=== PATIENT | female | born 1990 | race American Indian/Alaskan Native ===

== ENCOUNTER 2018-10-13 02:31 | Inpatient (IN) | payer MEDICAID ==
[2018-10-13] MEDS ORDERED: AMPICILLIN/NS 2 GM/100 ML 2 GM/100 ML BAG IV ONE (03:03)
[2018-10-13] MEDS ORDERED: MINERAL OIL PO PRN ×2 (03:03→08:46)
[2018-10-13] MEDS ORDERED: BRETHINE IVP PRN ×2 (03:03→08:46)
[2018-10-13] MEDS ORDERED: XYLOCAINE 2% INFILTRATI ONE ×2 (03:03→09:00)
[2018-10-13] MEDS ORDERED: ZOFRAN IV PRN (03:03)
[2018-10-13] MEDS ORDERED: BRETHINE SUB-Q PRN ×2 (03:03→08:46)
[2018-10-13 03:26] LABS: Hematocrit 32.1 % (30.3-42.9); Hemoglobin 10.7 gm/dl (10.1-14.3); Mean Corpuscular HGB Conc 33 % (30-34); Mean Corpuscular Volume 76 fl (79-97); Platelet Count 168 K/mm3 (140-440); Red Blood Count 4.24 M/mm3 (3.65-5.03); Red Cell Distribution Width 18.2 % (13.2-15.2)
[2018-10-13] MEDS ORDERED: PITOCin/NS 20 UNIT/1000ML DRIP 20 UNITS/1,000 ML BAG IV SCH ×3 (04:00→16:00)
[2018-10-13] MEDS ORDERED: PITOCin/NS 30 UNIT/500ML 30 UNITS/500 ML BAG IV SCH ×3 (04:00→09:00)
[2018-10-13] MEDS ORDERED: LACTATED RINGERS 1,000 ML IV SCH ×2 (04:00→09:00)
[2018-10-13] MEDS: SUBLIMAZE IV PRN ×2 (05:50→08:28)
[2018-10-13] MEDS ORDERED: PHENERGAN PO PRN (08:46)
[2018-10-13] MEDS ORDERED: STADOL IV PRN (08:46)
[2018-10-13] MEDS ORDERED: NARCAN 0.4 MG/1 ML IV PRN ×2 (08:46→15:53)
--- NOTE | 2018-10-13 09:14 | History and Physical Report ---
History of Present Illness Date of examination: 10/13/18 Date of admission: This is a 28 yo at 41 weeks here for srom last evening. She was ntoed to be 4cm. She is a patient of [facility]. GBS neg. Unremarkable care course Chief complaint: leaking History of present illness: This is a 28 yo at 41 weeks here for srom. Past History Past Medical History: no pertinent history Past Surgical History: no surgical history Family/Genetic History: heart disease Social history: no significant social history. denies: smoking, alcohol abuse, prescription drug abuse - Obstetrical History Expected Date of Delivery: 10/06/18 Actual Gestation: 41 Week(s) 0 Day(s) : 2 Para: 0 Hx # Term Pregnancies: 0 Number of Pregnancies: 0 Spontaneous Abortions: 1 Induced : 0 Number of Living Children: 0 Medications and Allergies Allergies Allergy/AdvReac Type Severity Reaction Status Date / Time No Known Allergies Allergy Unverified 10/13/18 03:02 Active Meds: Active Medications Butorphanol Tartrate (Stadol) 2 mg IV Q2H PRN PRN Reason: Pain , Severe (7-10) Ephedrine Sulfate (Ephedrine Sulfate) 10 mg IV Q2M PRN PRN Reason: Hypotension Fentanyl (Sublimaze) 100 mcg IV Q2H PRN PRN Reason: Labor Pain Last Admin: 10/13/18 05:50 Dose: 100 mcg Documented by: Oxytocin/Sodium Chloride (Pitocin/Ns 20 Unit/1000ml Drip) 20 units in 1,000 mls @ 125 mls/hr IV DIRECT DAYANNA Oxytocin/Sodium Chloride (Pitocin/Ns 30 Unit/500ml) 30 units in 500 mls @ 1 mls/hr IV TITR DAYANNA; Protocol Lactated Ringer's (Lactated Ringers) 1,000 mls @ 125 mls/hr IV DIRECT DAYANNA Last Admin: 10/13/18 04:20 Dose: 125 mls/hr Documented by: Oxytocin/Sodium Chloride (Pitocin/Ns 20 Unit/1000ml Drip) 20 units in 1,000 mls @ 125 mls/hr IV DIRECT DAYANNA Oxytocin/Sodium Chloride (Pitocin/Ns 30 Unit/500ml) 30 units in 500 mls @ 1 mls/hr IV TITR DAYANNA; Protocol Oxytocin/Sodium Chloride (Pitocin/Ns 30 Unit/500ml) 30 units in 500 mls @ 0 mls/hr IV TITR DAYANNA; Protocol Lactated Ringer's (Lactated Ringers) 1,000 mls @ 125 mls/hr IV DIRECT DAYANNA Mineral Oil (Mineral Oil) 30 ml PO QHS PRN PRN Reason: Constipation Naloxone HCl (Narcan 0.4 Mg/1 Ml) 0.1 mg IV Q2MIN PRN PRN Reason: Res Rate </= 8 or 02 SAT < 92% Ondansetron HCl (Zofran) 4 mg IV Q8H PRN PRN Reason: Nausea And Vomiting Last Admin: 10/13/18 04:58 Dose: 4 mg Documented by: Promethazine HCl (Phenergan) 25 mg PO Q6H PRN PRN Reason: Nausea And Vomiting Terbutaline Sulfate (Brethine) 0.25 mg SUB-Q ONCE PRN PRN Reason: Hyperstimulation/Hypertonicity Terbutaline Sulfate (Brethine) 0.25 mg IVP ONCE PRN PRN Reason: Hyperstimulation/Hypertonicity Terbutaline Sulfate (Brethine) 0.25 mg SUB-Q ONCE PRN PRN Reason: Hyperstimulation/Hypertonicity Terbutaline Sulfate (Brethine) 0.25 mg IVP ONCE PRN PRN Reason: Hyperstimulation/Hypertonicity Review of Systems All systems: negative Genitourinary: leakage of fluid - Vital Signs Vital signs: Vital Signs Temp Resp 97.7 F 18 10/13/18 02:36 10/13/18 02:36 Temp Pulse Resp BP Pulse Ox 97.5 F L 77 24 121/73 97 10/13/18 07:31 10/13/18 09:07 10/13/18 07:31 10/13/18 07:33 10/13/18 09:07 - Physical Exam Breasts: Positive: normal Cardiovascular: Regular rate, Normal S1 Lungs: Positive: Clear to auscultation, Normal air movement Abdomen: Positive: normal appearance, soft, normal bowel sounds. Negative: distention, tenderness, guarding Genitourinary (Female): Positive: normal external genitalia, normal perenium Vulva: both: normal Vagina: Positive: normal moisture Uterus: Positive: normal size Anus/Rectum: Positive: normal perianal skin Extremities: Positive: normal Deep Tendon Reflex Grade: Normal +2 - Obstetrical FHR: category 1 Cervical Dilatation: 5 Cervical Effacement Percentage: 80 station: -2 Uterine Contraction Pattern: Regular Uterine Tone Measurement Phase: Contraction Uterine Contraction Intensity: Moderate Results Result Diagrams: 10/13/18 03:00 Abnormal lab results 10/13/18 Range/Units 03:00 MCV 76 L (79-97) fl MCH 25 L (28-32) pg RDW 18.2 H (13.2-15.2) % All other labs normal. Assessment and Plan A/P IUP 41 weeks GBS neg ifv, labs offer epidural pitocin expect vaginal delivery
[2018-10-13] MEDS ORDERED: NARCAN 2 MG/2 ML IV PRN (09:15)
--- NOTE | 2018-10-13 09:15 | Anesthesia Consultation ---
Anesthesia Consult and Med Hx Date of service: 10/13/18 - Airway Anesthetic Teeth Evaluation: Good ROM Head & Neck: Adequate Mental/Hyoid Distance: Adequate Mallampati Class: Class II Intubation Access Assessment: Probably Good - Pulmonary Exam CTA: Yes - Cardiac Exam Cardiac Exam: RRR - Pre-Operative Health Status ASA Pre-Surgery Classification: ASA2 Proposed Anesthetic Plan: Epidural - Pulmonary Hx Asthma: No COPD: No Hx Pneumonia: No - Cardiovascular System Hx Hypertension: No - Central Nervous System Hx Seizures: No Hx Psychiatric Problems: No - Endocrine Hx Renal Disease: No Hx End Stage Renal Disease: No Hx Hypothyroidism: No Hx Hyperthyroidism: No - Hematic Hx Anemia: No Hx Sickle Cell Disease: No - Other Systems Hx Alcohol Use: No
[2018-10-13] MEDS ORDERED: fentaNYL-BUPIV 2 MCG/ML-0.125% 200 MCG/100 ML BAG EPIDURAL SCH (10:00)
[2018-10-13] MEDS ORDERED: NACL 0.9% IR ONE (14:51)
[2018-10-13] MEDS ORDERED: WATER FOR IRRIG STERILE IR ONE (14:51)
[2018-10-13] MEDS ORDERED: HEMABATE IM ONE (15:05)
[2018-10-13] MEDS ORDERED: ANCEF ONE (15:09)
[2018-10-13] MEDS ORDERED: PHENERGAN PR PRN (15:53)
[2018-10-13] MEDS ORDERED: NORCO 5/325 PO PRN (15:53)
[2018-10-13] MEDS ORDERED: LANSINOH TP PRN (15:53)
[2018-10-13] MEDS ORDERED: TUCKS PAD TP PRN (15:53)
[2018-10-13] MEDS ORDERED: TORADOL IV PRN ×2 (15:53)
[2018-10-13] MEDS ORDERED: TYLENOL PO PRN (15:53)
[2018-10-13] MEDS ORDERED: MORPHINE IV PRN ×2 (15:53)
[2018-10-13] MEDS ORDERED: D5LR 1,000 ML IV SCH (16:00)
[2018-10-13] MEDS ORDERED: SODIUM CHLORIDE FLUSH SYRINGE 10 ML IV NR (16:00)
--- NOTE | 2018-10-13 16:00 | Event Note ---
Date: 10/13/18 Upon evaluation, patient strip showed decels to the 50s. Discused with patient r/b//a of csec which include bleeding, ionfection, damage to pelvic and non pelvic organs risk of blood clots pain and repeat surgeries, including hysterectomy and . Patient agrees and will proceed to emergency
--- NOTE | 2018-10-13 16:01 | Procedure Note ---
OB Delivery Note - Delivery Date of Delivery: 10/13/18 Surgeon: JAVON LUND Estimated blood loss: 500cc - Section Preop diagnosis: nonreassuring FHR tracing Postop diagnosis: same section procedure: section Disposition: PACU Complications: none Narrative: see op note - Infant A at 1 minute: 9 at 5 minutes: 9 Gender: Female (7 pounds 13oz)
--- NOTE | 2018-10-13 16:02 | Operative Report ---
Operative Report Operative Report: PREOPERATIVE DIAGNOSES: 1. Intrauterine at 41 weeks 2. NRFHT 3. Meconium POSTOPERATIVE DIAGNOSES: 1. -5 LISSETT PROCEDURE PERFORMED: Primary low-transverse section. SURGEON: Dr. Rosa Dobbs MD ANESTHESIA: Epidural. ESTIMATED BLOOD LOSS: 500 mL. COMPLICATIONS: None. FINDINGS: Female in cephalic presentation, OP position, weight 7 pounds 13 ounces. Apgars were 9 at 1 minute and 9 at 5 minutes. Normal uterus, tubes, and ovaries were noted. INDICATIONS: The patient is a 28-year-old 2, para 0 female, who presented to labor and delivery for srom and active labor. She was admitted and progressed to 9 cm and had a bradycardia to 50s so emergency csec. The procedure was described to the patient in detail including possible risks of bleeding, infection, injury to surrounding organs, and possible need for further surgery. Informed consent was obtained prior to proceeding with the procedure. PROCEDURE NOTE: The patient was taken to the operating room where epidural anesthesia was found to be adequate. The patient was prepped and draped in the usual sterile fashion in the dorsal supine position with a left-covarrubias tilt. A Pfannenstiel skin incision was made with the scalpel and carried through to the underlying layer of fascia using the Bovie. The fascia was incised in the midline and extended laterally using Ashby scissors. Li clamps were used to elevate the superior aspect of the fascial incision, which was elevated, and the underlying rectus muscles were dissected off bluntly and using Ashby scissors. Attention was then turned to the inferior aspect of the fascial incision, which in similar fashion was grasped with Li clamps, elevated, and the underlying rectus muscles were dissected off bluntly and using Ashby scissors. The rectus muscles were dissected in the midline. The peritoneum was bluntly dissected, entered, and extended superiorly and inferiorly with good visualization of the bladder. The bladder blade was inserted. The vesicouterine peritoneum was identified with pickups and entered sharply using Metzenbaum scissors. This incision was extended laterally and the bladder flap was created digitally. The bladder blade was reinserted. The lower uterine segment was incised in a transverse fashion using the scalpel and ex tended using manual traction. Thick meconium fluid was noted. The infant was subsequently delivered atraumatically. The nose and mouth were bulb suctioned. The cord was clamped and cut. The was subsequently handed to the awaiting nursery nurse. cord gases obtained and placenta sent for analysis. The uterus was exteriorized and cleared of all clots and debris. The uterine incision was repaired in 2 layers using 0 chromic suture. Hemostasis was visualized. The uterus was returned to the abdomen. The pelvis was copiously irrigated. The uterine incision was reexamined and was noted to be hemostatic. The rectus muscles were reapproximated in the midline using 3-0 Vicryl. The fascia was closed with 0 PDS, the subcutaneous layer was closed with 3-0 plain gut, and the skin was closed withKeith needle. Sponge, lap, and instrument counts were correct x2. The patient was stable at the completion of the procedure and was subsequently transferred to the recovery room in stable condition.
[2018-10-13] MEDS ORDERED: DECADRON ONE (16:09)
[2018-10-13] MEDS ORDERED: MARCAINE-EPI 0.25%-1:200,000 INFILTRATI ONE ×2 (16:10→16:13)
--- NOTE | 2018-10-13 16:52 | Post Anesthesia Evaluation ---
- Post Anesthesia Evaluation Patient Participated: Yes Airway Patent: Yes Stable Respiratory Function: Yes Nausea/Vomiting: No Temp > 96.8F: Yes Pain Manageable: Yes Adequeate Hydration: Yes Anesthesia Complications: No Block Receding Appropriately: Yes
[2018-10-13] MEDS: PERCOCET 5/325 PO PRN (21:49)
[2018-10-14] MEDS: PERCOCET 5/325 PO PRN ×2 (02:50→08:45)
[2018-10-14 05:50] LABS: Hematocrit 23.3 % (30.3-42.9); Hemoglobin 7.7 gm/dl (10.1-14.3)
[2018-10-14] MEDS: IBUPROFEN PO PRN ×3 (06:29→18:35)
--- NOTE | 2018-10-14 09:32 | Progress Note ---
Assessment and Plan A/P PPD1 s/p emergency csec to [facility] routine postop care Subjective - Subjective Date of service: 10/14/18 Principal diagnosis: s/p emergency Interval history: This is a 28 yo at 41 weeks here for srom. Patient reports: appetite normal, voiding normally, pain well controlled, flatus, ambulating normally : in NICU Objective - Vital Signs Latest vital signs: Vital Signs Temp Pulse Resp BP BP Pulse Ox 10/14/18 07:29 18 10/14/18 06:29 18 10/14/18 04:00 98 F 68 16 104/75 10/14/18 03:50 18 10/14/18 02:50 18 10/14/18 00:00 98.7 F 66 18 118/68 10/13/18 22:49 18 10/13/18 21:49 18 10/13/18 18:26 98.4 F 83 18 120/57 97 10/13/18 17:15 71 16 130/65 100 10/13/18 17:00 96 H 18 133/67 100 10/13/18 16:45 78 20 146/57 100 10/13/18 16:30 93 H 21 127/63 100 10/13/18 16:15 104 H 16 114/71 100 10/13/18 16:05 96 H 24 109/62 100 10/13/18 16:00 107 H 20 92/62 100 10/13/18 15:55 97.9 F 90 21 105/48 100 10/13/18 15:12 99 10/13/18 14:36 89 99 10/13/18 14:31 80 98 10/13/18 14:28 91 H 110/62 10/13/18 14:26 88 98 10/13/18 14:21 66 99 10/13/18 14:16 88 98 10/13/18 14:14 81 119/59 10/13/18 14:11 85 99 10/13/18 14:06 78 98 10/13/18 14:01 71 99 10/13/18 14:00 67 116/62 10/13/18 13:56 72 98 10/13/18 13:51 71 98 10/13/18 13:46 69 99 10/13/18 13:44 67 110/59 10/13/18 13:41 67 98 10/13/18 13:36 72 99 10/13/18 13:31 77 99 10/13/18 13:29 93 H 139/74 10/13/18 13:26 82 100 10/13/18 13:21 80 100 10/13/18 13:16 94 H 100 10/13/18 13:15 83 L 10/13/18 13:11 79 88 10/13/18 13:06 81 100 10/13/18 12:59 94 H 101/57 99 10/13/18 12:54 89 100 10/13/18 12:51 97.9 F 18 10/13/18 12:49 997.9 F H 89 18 99 10/13/18 12:44 93 H 98 10/13/18 12:43 93 H 105/57 10/13/18 12:39 95 H 98 10/13/18 12:34 99 H 97 10/13/18 12:31 78 108/56 10/13/18 12:29 106 H 98 10/13/18 12:24 87 99 10/13/18 12:19 83 98 10/13/18 12:14 96 H 115/59 99 10/13/18 12:09 95 H 97 10/13/18 12:04 93 H 98 10/13/18 11:59 87 97 10/13/18 11:58 108 H 107/63 10/13/18 11:50 87 98 10/13/18 11:45 103 H 85 10/13/18 11:43 93 H 101/59 10/13/18 11:40 87 97 10/13/18 11:35 83 98 10/13/18 11:30 82 97 10/13/18 11:28 76 110/58 10/13/18 11:25 83 97 10/13/18 11:20 85 97 10/13/18 11:15 80 96 10/13/18 11:13 82 108/59 10/13/18 11:10 80 97 10/13/18 11:05 75 98 10/13/18 11:00 80 110/63 97 10/13/18 10:55 90 98 10/13/18 10:50 77 96 10/13/18 10:45 80 97 10/13/18 10:44 75 109/52 10/13/18 10:40 83 97 10/13/18 10:35 83 99 10/13/18 10:30 73 121/68 98 10/13/18 10:25 84 99 10/13/18 10:20 65 97 10/13/18 10:15 60 98 10/13/18 10:14 75 122/79 10/13/18 10:10 80 98 10/13/18 10:05 83 98 10/13/18 10:00 77 99 10/13/18 09:57 90 134/96 10/13/18 09:55 76 98 10/13/18 09:52 100 H 122/69 10/13/18 09:50 99 H 95 10/13/18 09:47 87 122/69 10/13/18 09:45 78 96 10/13/18 09:42 81 115/61 10/13/18 09:40 72 97 10/13/18 09:39 91 H 129/72 10/13/18 09:38 102 H 67 L 10/13/18 09:37 76 124/58 10/13/18 09:35 87 97 10/13/18 09:31 90 134/63 10/13/18 09:30 69 97 Intake and Output 10/13/18 10/14/18 10/14/18 23:59 07:59 15:59 Intake Total 300 840 Output Total 1600 1600 Balance -1300 -760 Intake: IV 300 Oral 540 Intake, Free Water 300 Output: Urine 1600 1600 Uretheral (Hall) 1400 Void 1600 Other: Total, Intake Amount 300 Total, Output Amount 800 # Voids Void 1 - Exam Breasts: Present: normal Cardiovascular: Present: Regular rate, Normal S1 Lungs: Present: Clear to auscultation, Normal air movement Abdomen: Present: normal appearance, soft, normal bowel sounds. Absent: distention, tenderness, guarding Uterus: Present: normal, firm, fundal height below umbilicus Extremities: Present: normal Deep Tendon Reflex Grade: Normal +2 Incision: Present: normal, dry, dressed - Labs Labs: Abnormal lab results 10/13/18 10/14/18 Range/Units 15:07 05:20 Hgb 7.7 L D (10.1-14.3) gm/dl Hct 23.3 L D (30.3-42.9) % POC ABG pH 7.253 L (7.35-7.45)
[2018-10-14] MEDS ORDERED: FEOSOL PO SCH (10:00)
[2018-10-14] MEDS: PRENATAL VITAMIN PO SCH (10:16)
[2018-10-14] MEDS ORDERED: PERCOCET 5/325 PO ONE (10:29)
[2018-10-14] MEDS ORDERED: M-M-R II VACCINE SUB-Q ONE (15:54)
[2018-10-14] MEDS ORDERED: BOOSTRIX IM ONE (15:54)
[2018-10-14] MEDS: FEOSOL PO SCH (16:23)
[2018-10-15] MEDS: FEOSOL PO SCH ×4 (00:08→22:01)
[2018-10-15] MEDS: IBUPROFEN PO PRN ×2 (06:11→17:15)
--- NOTE | 2018-10-15 08:03 | Progress Note ---
Assessment and Plan A: POD# 2 s/p primary section at term, Acute blood loss anemia P: Routine care. Bowel regimen. Iron supplementation. Anticipate discharge tomorrow. Subjective - Subjective Date of service: 10/15/18 Principal diagnosis: s/p emergency Interval history: Pt without complaints this morning. + flatus yesterday but no bowel movement yet. Patient reports: appetite normal, voiding normally, pain well controlled, flatus, ambulating normally, no bowel movement : doing well Objective - Vital Signs Latest vital signs: Vital Signs Temp Pulse Resp BP BP Pulse Ox 10/15/18 00:18 98 F 94 H 16 111/61 97 10/14/18 16:35 97.4 F L 103 H 18 110/63 96 10/14/18 12:08 98.3 F 89 18 110/64 99 10/14/18 08:18 97.6 F 94 H 18 100/58 98 Intake and Output 10/14/18 10/15/18 10/15/18 22:59 06:59 14:59 Other: # Voids Void 2 1 - Exam Breasts: Present: deferred Cardiovascular: Present: Regular rate Lungs: Present: Clear to auscultation Abdomen: Present: soft (obese ), abnormal bowel sounds (hypoactive ) Uterus: Present: fundal height below umbilicus Extremities: Present: edema (trace) Incision: Present: intact (with steristrips )
[2018-10-15 08:07] LABS: Hematocrit 21.8 % (30.3-42.9); Hemoglobin 7.4 gm/dl (10.1-14.3)
[2018-10-15] MEDS: PRENATAL VITAMIN PO SCH (08:57)
[2018-10-15] MEDS: MILK OF MAGNESIA PO SCH ×3 (09:35→22:01)
[2018-10-15] MEDS: COLACE PO SCH ×2 (10:00→22:01)
[2018-10-15] MEDS: PERCOCET 5/325 PO PRN (17:16)
[2018-10-16] MEDS: PERCOCET 5/325 PO PRN ×2 (00:04→17:12)
[2018-10-16] MEDS: MILK OF MAGNESIA PO SCH ×2 (06:58→16:17)
--- NOTE | 2018-10-16 07:23 | Progress Note ---
Assessment and Plan A: POD# 3 s/p primary section at term, Acute blood loss anemia P: Routine care. Discharge today with follow up in 2 wks in the office Subjective - Subjective Date of service: 10/16/18 Principal diagnosis: s/p emergency Interval history: No overnight events. Patient reports: appetite normal, voiding normally, pain well controlled, flatus, ambulating normally, no bowel movement [place]: doing well Objective - Vital Signs Latest vital signs: Vital Signs Temp Pulse Resp BP BP Pulse Ox 10/16/18 00:28 97.8 F 99 H 18 132/77 99 10/15/18 16:01 98.2 F 105 H 18 121/67 10/15/18 07:53 97.3 F L 82 18 134/69 Intake and Output 10/15/18 10/16/18 10/16/18 22:59 06:59 14:59 Intake Total 600 Balance 600 Intake: Oral 600 Other: Total, Intake Amount 120 - Exam Breasts: Present: deferred Cardiovascular: Present: Regular rate Lungs: Present: Clear to auscultation Abdomen: Present: soft (obese ), normal bowel sounds Uterus: Present: fundal height below umbilicus Extremities: Present: edema (trace) Incision: Present: intact - Labs Labs: Abnormal lab results 10/15/18 Range/Units 07:18 Hgb 7.4 L (10.1-14.3) gm/dl Hct 21.8 L (30.3-42.9) %
--- NOTE | 2018-10-16 07:26 | Discharge Summary ---
Providers - Providers Date of Admission: 10/13/18 15:00 Date of discharge: 10/16/18 Attending physician: JAVON LUND MD Primary care physician: JAVON LUND MD Hospitalization Reason for admission: rupture of membranes Delivery: Procedure: section, primary low transverse Procedure details: Please see operative report. Incision: intact Other procedures: none complications: none Discharge diagnosis: IUP at term delivered [place] baby: female Hospital course: Pt was admitted with rupture of membranes and went on to have a primary section which she tolerated well. Her postoperative course was complicated by acute blood loss anemia, that was asymptomatic. She met discharge criteria on POD#3. She will follow up in 2 wks for an incision check. Condition at discharge: Stable Disposition: - TO HOME OR SELFCARE - Discharge Diagnoses (1) Term of female Status: Acute (2) Acute blood loss anemia Status: Acute (3) Obesity Status: Acute Qualifiers: Obesity classification: adult class 2 (BMI 35 - 39.9) Serious obesity comorbidity presence: unspecified whether serious comorbidity present Body mass index: BMI 36.0-36.9 (4) S/P section Status: Acute Plan - Discharge Medications Prescriptions: Docusate Sodium [Colace] 100 mg PO BID PRN #60 capsule PRN Reason: Constipation Ferrous Sulfate [Feosol 325 MG tab] 325 mg PO TID #90 tablet Ibuprofen [Motrin] 800 mg PO Q8HR PRN #30 tablet PRN Reason: Pain, Moderate (4-6) oxyCODONE /ACETAMINOPHEN [Percocet 5/325] 1 tab PO Q6HR PRN #40 tablet PRN Reason: Pain - Provider Discharge Summary Activity: routine, no sex for 6 weeks, no heavy lifting 4 weeks, no strenuous exercise Diet: routine Instructions: routine Additional instructions: [] Smoking cessation referral if applicable(refer to patient education folder for contact #) [] Refer to [facility] Booklet Call your doctor immediately for: * Fever > 100.5 * Heavy vaginal bleeding ( >1 pad per hour) * Severe persistent headache * Shortness of breath * Reddened, hot, painful area to leg or breast * Drainage or odor from incision. * Keep incision clean and dry at all times and follow doctor's instructions regarding bathing/showering - Follow up plan Follow up: JAVON LUND MD [Primary Care Provider] - 10/30/18 (Please call to schedule an appt for incision check [phone] )
[2018-10-16] MEDS: COLACE PO SCH (10:01)
[2018-10-16] MEDS: FEOSOL PO SCH ×2 (10:01→17:12)
[2018-10-16] MEDS: PRENATAL VITAMIN PO SCH (10:02)
[2018-10-16] MEDS: IBUPROFEN PO PRN (10:10)
[2018-10-16 16:32] VITALS: BP 117/67
== END 2018-10-16 18:45 | disposition home or self-care (01) | DRG 765 ==
LOC: TRG 02:31 → LD 04:51 → TRG 14:59 → LD 15:00 → OB 19:07
PROVIDERS: ADMIT Obstetrics & Gynecology; ATTEND Obstetrics & Gynecology
PROC: 10D00Z1 Extraction of Products of Conception, Low, Open Approach (ICD-10-PCS; principal; 2018-10-13)
PROC: 3E0234Z Introduction of Serum, Toxoid and Vaccine into Muscle, Percutaneous Approach (ICD-10-PCS; 2018-10-14)
DX: O76 Abnormality in fetal heart rate and rhythm complicating labor and delivery (principal); D62 Acute posthemorrhagic anemia; O99.214 Obesity complicating childbirth; E66.9 Obesity, unspecified; O77.0 Labor and delivery complicated by meconium in amniotic fluid; O99.013 Anemia complicating pregnancy, third trimester; Z37.0 Single live birth; Z3A.41 41 weeks gestation of pregnancy; Z23 Encounter for immunization
CPT/HCPCS: 36415; 82803; 85014; 85018; 85027; 86592; 86850; 86900; 86901; 88307; G0378; A6250; J0290; J0690; J0735; J1100; J2405; J2590; J3010; J7120; J7121